=== PATIENT | female | born 1965 | race Caucasian/White ===

== ENCOUNTER 2017-04-18 09:35 | Emergency (ER) | payer BC ==
[2017-04-18 09:45] VITALS: BP 140/80
--- NOTE | 2017-04-18 11:21 | EDM.PDOC ---
ED HPI GENERAL MEDICAL PROBLEM - General Chief Complaint: Respiratory Problem Stated Complaint: SOB Time Seen by Provider: 04/18/17 09:56 Source of Information: Reports: Patient, RN Notes Reviewed - History of Present Illness INITIAL COMMENTS - FREE TEXT/NARRATIVE: 51-year-old female comes in with some intermittent shortness of breath and pressure sensation anterior chest the past 2 days. She has not been ill with cough sore throat fever or chills. It does not hurt to breathe. She does have history of GERD and at times there is some burning discomfort of the upper abdomen into the lower chest. She thinks this may be reflux but wants to make sure that there is nothing more serious going on. She does have history of hypertension. She has history of type 2 diabetes. No known history for coronary artery disease. 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 - Related Data Allergies Allergy/AdvReac Type Severity Reaction Status Date / Time cephalexin Allergy Other Verified 12/06/16 06:22 Sulfa (Sulfonamide Allergy Nausea Verified 12/06/16 06:22 Antibiotics) sulfamethoxazole Allergy Other Verified 12/06/16 06:22 [From Bactrim] trimethoprim [From Bactrim] Allergy Other Verified 12/06/16 06:22 pet dander Allergy Other Uncoded 12/06/16 06:22 Home Meds: Home Meds Acetaminophen [Tylenol] 650 mg PO Q6HR PRN 07/28/16 [History] Aspirin [Halfprin] 81 mg PO ASDIRECTED 07/28/16 [History] Cholestyramine/Sucrose [Cholestyramine] 1 dose PO DAILY PRN 07/28/16 [History] Esomeprazole Magnesium [Nexium] 20 mg PO DAILY 07/28/16 [History] Fexofenadine [Laurel] 180 mg PO DAILY 07/28/16 [History] Lisinopril 5 mg PO DAILY 07/28/16 [History] glipiZIDE [Glipizide Xl] 10 mg PO BID 07/28/16 [History] metFORMIN HCl [Metformin HCl] 1,000 mg PO BID 07/28/16 [History] metroNIDAZOLE [Metrocream] 1 applic TOP BID 07/28/16 [History] Past Medical History HEENT History: Reports: Impaired Vision Cardiovascular History: Reports: Hypertension Other Cardiovascular History: palpitations Respiratory History: Reports: Asthma, Sleep Apnea Gastrointestinal History: Reports: GERD, Inflammatory Bowel Disease Genitourinary History: Reports: UTI, Recurrent 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: , Other (See Below) Other OB/BYN History: polyp removal from uteris Musculoskeletal History: Reports: Back Pain, Chronic Endocrine/Metabolic History: Reports: Diabetes, Type II Dermatologic History: Reports: Other (See Below) Other Dermatologic History: rosasia - Past Surgical History Musculoskeletal Surgical History: Reports: Other (See Below) Social & Family History - Family History Family Medical History: Noncontributory - Tobacco Use Smoking Status *Q: Never Smoker Second Hand Smoke Exposure: No - Caffeine Use Caffeine Use: Reports: Soda - Recreational Drug Use Recreational Drug Use: Yes ED ROS GENERAL - Review of Systems Review Of Systems: See Below Constitutional: Denies: Fever, Chills, Diaphoresis HEENT: Denies: Throat Pain Respiratory: Reports: Shortness of Breath. Denies: Wheezing, Pleuritic Chest Pain, Cough, Sputum, Hemoptysis Cardiovascular: Reports: Chest Pain. Denies: Palpitations GI/Abdominal: Reports: Abdominal Pain (Intermittent upper mid abdominal discomfort). Denies: Nausea, Vomiting Musculoskeletal: Denies: Shoulder Pain, Arm Pain, Back Pain Skin: Reports: No Symptoms Neurological: Reports: No Symptoms ED EXAM, GENERAL - Physical Exam Exam: See Below General Appearance: Alert, Moderate Distress Eye Exam: Bilateral Eye: PERRL Throat/Mouth: Normal Inspection, Normal Oropharynx Head: No: Facial Swelling Neck: Supple, Full Range of Motion, Other (No JVD) Respiratory/Chest: No Respiratory Distress, Lungs Clear, Normal Breath Sounds Cardiovascular: Regular Rate, Rhythm GI/Abdominal: Soft, Tender (Very mild tenderness upper mid abdomen) Back Exam: No: CVA Tenderness (L), CVA Tenderness (R) Extremities: No: Leg Pain, Increased Warmth, Redness Neurological: Alert, Oriented, No Motor/Sensory Deficits EKG INTERPRETATION EKG Date: 04/18/17 Rhythm: NSR [place]: normal P-wave: present QRS: normal ST-T: normal Course - Vital Signs Last Recorded V/S: Last Vital Signs Temp 98 F 04/18/17 09:41 Pulse 94 04/18/17 09:41 Resp 21 H 04/18/17 09:41 BP 140/80 04/18/17 09:41 Pulse Ox 93 L 04/18/17 09:41 - Orders/Labs/Meds Orders: Active Orders 24 hr Category Date Time Status Chest 1V Frontal [CR] Stat Exams 04/18/17 10:11 Taken Labs: Laboratory Tests 04/18/17 Range/Units 10:02 Troponin I < 0.017 (0.00-0.056) ng/mL - Re-Assessments/Exams Free Text/Narrative Re-Assessment/Exam: 04/18/17 11:44 Chest x-ray and troponin are good, patient resting comfortably while here in the ED, sinus rhythm no ectopy discharge instructions as documented Departure - Departure Time of Disposition: 11:19 Disposition: Home, Self-Care 01 Condition: fair Clinical Impression: Atypical chest pain, GERD (gastroesophageal reflux disease) - Discharge Information Instructions: Nonspecific Chest Pain, Gastroesophageal Reflux Disease, Adult, [id number] Referrals: Asuncion Diana MD [Primary Care Provider] - Forms: ED Department Discharge Additional Instructions: Continue Nexium as prescribed, you may take Pepcid(famotidine), available OTC in addition 20 mg one to 2 times daily for extra antacid relief, take occasional tums or Maalox if needed, followup clinic as needed, return to ED as needed if symptoms worsening in any way - My Orders Last 24 Hours: My Active Orders 04/18/17 10:11 Chest 1V Frontal [CR] Stat - Assessment/Plan Last 24 Hours: My Active Orders 04/18/17 10:11 Chest 1V Frontal [CR] Stat
--- NOTE | 2017-04-19 09:06 | CR ---
Chest: Portable view of the chest was obtained. Comparison: No previous study. Heart size and mediastinum are within normal limits. Lungs are clear. Bony structures are grossly intact. Impression: 1. Nothing acute is identified on portable chest x-ray. Diagnostic code #1
== END 2017-04-18 11:40 | disposition home or self-care (01) ==
LOC: JD.ED 09:35
DX: R07.89 Other chest pain (principal); K21.9 Gastro-esophageal reflux disease without esophagitis; I10 Essential (primary) hypertension; E11.9 Type 2 diabetes mellitus without complications; Z79.899 Other long term (current) drug therapy; Z79.82 Long term (current) use of aspirin; Z88.1 Allergy status to other antibiotic agents; Z88.2 Allergy status to sulfonamides; Z91.048 Other nonmedicinal substance allergy status
CPT/HCPCS: 36415; 71010; 71010-26; 84484; 99283; 99285

== ENCOUNTER 2019-09-14 12:48 | Emergency (ER) | payer BC ==
[2019-09-14 13:01] VITALS: BP 159/87; PULSE 83
[2019-09-14] MEDS ORDERED: Sodium Chloride 0.9% 10 ML Syringe FLUSH PRN (13:07)
[2019-09-14] MEDS ORDERED: Sodium Chloride 0.9% 1,000 ML IV ONE (13:07)
--- NOTE | 2019-09-14 13:25 | EDM.PDOC ---
ED HPI GENERAL MEDICAL PROBLEM - General Chief Complaint: Gastrointestinal Problem Stated Complaint: CONSTIPATION Time Seen by Provider: 09/14/19 12:56 Source of Information: Reports: Patient, RN Notes Reviewed History Limitations: Reports: No Limitations - History of Present Illness INITIAL COMMENTS - FREE TEXT/NARRATIVE: Patient is a 54-year-old female who presents to the ED for evaluation of constipation. She notes that she has not had a regular bowel movement in over 7 days. She has been communicating with her primary care provider at [facility] via their one chart. She has been using MiraLAX twice a day since Wednesday, and did try Dulcolax on Wednesday, and this has not provided much relief of her constipation. She states she is also trying to increase her oral fluid intake as well. She notes that she had a little bit of liquid type stool in the morning, but has not had anything that she would consider a large amount of stool for the amount of time she has not had a BM. She has been staying away from dairy products as well. The patient notes that she normally has a history of diarrhea that she has to take colostrum for, this is a result of her gallbladder removal. She denies any fevers or chills, nausea or vomiting or diarrhea, any urinary complaints. She states that she just feels really full, and she states sometimes it feels as if it's hard to breathe due to her constipation. She does note a history of IBS, and heartburn issues. She denies any other abdominal surgeries other than the cholecystectomy. She states she's never had an issue with constipation before. - Related Data Allergies Allergy/AdvReac Type Severity Reaction Status Date / Time cephalexin Allergy Other Verified 06/18/19 18:17 dimethicone Allergy Rash Verified 06/18/19 18:20 levofloxacin [From Levaquin] Allergy Cannot Verified 06/18/19 18:20 Remember lorazepam [From Ativan] Allergy Rash Verified 06/18/19 18:20 methylprednisolone Allergy Hives Verified 06/18/19 18:20 nitrofurantoin Allergy Cannot Verified 06/18/19 18:20 Remember sertraline [From Zoloft] Allergy Cannot Verified 06/18/19 18:20 Remember Sulfa (Sulfonamide Allergy Nausea Verified 06/18/19 18:17 Antibiotics) sulfamethoxazole Allergy Other Verified 06/18/19 18:17 [From Bactrim] triamcinolone Allergy Hives Verified 06/18/19 18:20 trimethoprim [From Bactrim] Allergy Other Verified 06/18/19 18:17 pet dander Allergy Other Uncoded 06/03/17 10:34 Home Meds: Home Meds Acetaminophen [Tylenol] 650 mg PO Q6HR PRN 07/28/16 [History] Aspirin [Halfprin] 81 mg PO ASDIRECTED 07/28/16 [History] Cholestyramine/Sucrose [Cholestyramine] 1 dose PO DAILY PRN 07/28/16 [History] Esomeprazole Magnesium [Nexium] 20 mg PO DAILY 07/28/16 [History] Fexofenadine [Laurel] 180 mg PO DAILY 07/28/16 [History] Lisinopril 5 mg PO DAILY 07/28/16 [History] glipiZIDE [Glipizide Xl] 10 mg PO BID 07/28/16 [History] metFORMIN HCl [Metformin HCl] 1,000 mg PO BID 07/28/16 [History] metroNIDAZOLE [Metrocream] 1 applic TOP BID 07/28/16 [History] Doxycycline [Vibramycin] 100 mg PO BID #14 tab 09/14/19 [Rx] Past Medical History HEENT History: Reports: Impaired Vision Cardiovascular History: Reports: Hypertension Other Cardiovascular History: palpitations Respiratory History: Reports: Asthma, Sleep Apnea Gastrointestinal History: Reports: GERD, Inflammatory Bowel Disease Genitourinary History: Reports: UTI, Recurrent 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: , 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: polyp removal from uteris Musculoskeletal History: Reports: Back Pain, Chronic Endocrine/Metabolic History: Reports: Diabetes, Type II Dermatologic History: Reports: Other (See Below) Other Dermatologic History: rosasia - Past Surgical History Musculoskeletal Surgical History: Reports: Other (See Below) Social & Family History - Family History Family Medical History: Noncontributory - Tobacco Use Smoking Status *Q: Never Smoker - Caffeine Use Caffeine Use: Reports: Soda - Recreational Drug Use Recreational Drug Use: No ED ROS GENERAL - Review of Systems Review Of Systems: See Below Constitutional: Denies: Fever, Chills, Decreased Appetite HEENT: Reports: No Symptoms Respiratory: Denies: Shortness of Breath Cardiovascular: Denies: Chest Pain GI/Abdominal: Reports: Constipation (no BM x 7 days). Denies: Abdominal Pain, Diarrhea, Nausea, Vomiting : Denies: Dysuria, Frequency, Urgency Musculoskeletal: Reports: No Symptoms Skin: Reports: No Symptoms Neurological: Reports: No Symptoms Psychiatric: Reports: No Symptoms Hematologic/Lymphatic: Reports: No Symptoms Immunologic: Reports: No Symptoms ED EXAM, GI/ABD - Physical Exam Exam: See Below Exam Limited By: No Limitations General Appearance: Alert, WD/WN, No Apparent Distress, Obese (morbidly) Eyes: Bilateral: Normal Appearance, EOMI Respiratory/Chest: No Respiratory Distress, Lungs Clear, Normal Breath Sounds, No Accessory Muscle Use, Chest Non-Tender Cardiovascular: Normal Peripheral Pulses, Regular Rate, Rhythm, No Murmur GI/Abdominal Exam: Soft, Non-Tender, No Distention, No Mass, Abnormal Bowel Sounds (hypoactive bowel tones) Extremities: Normal Inspection, Normal Capillary Refill Neurological: Alert, Oriented, Normal Cognition, No Motor/Sensory Deficits Psychiatric: Normal Affect, Normal Mood Skin Exam: Warm, Dry, Intact, Normal Color, No Rash Course - Vital Signs Last Recorded V/S: Last Vital Signs Temp 98.0 F 09/14/19 12:55 Pulse 83 09/14/19 12:55 Resp 20 09/14/19 12:55 BP 159/87 H 09/14/19 12:55 Pulse Ox 98 09/14/19 12:55 - Orders/Labs/Meds Orders: Active Orders 24 hr Category Date Time Status Peripheral IV Care [RC] . DIRECTED Care 09/14/19 13:07 Active CULTURE URINE [RM] Routine Lab 09/14/19 16:23 Ordered Sodium Chloride 0.9% [Saline Flush] Med 09/14/19 13:07 Active 10 ml FLUSH ASDIRECTED PRN Peripheral IV Insertion Adult [OM.PC] Stat Oth 09/14/19 13:07 Ordered Medication Orders Sodium Chloride (Saline Flush) 10 ml FLUSH ASDIRECTED PRN PRN Reason: Keep Vein Open Labs: Laboratory Tests 09/14/19 09/14/19 09/14/19 Range/Units 13:10 13:10 13:34 WBC 7.78 (3.98-10.04) K/mm3 RBC 4.65 (3.98-5.22) M/mm3 Hgb 13.2 (11.2-15.7) gm/dl Hct 39.8 (34.1-44.9) % MCV 85.6 (79.4-94.8) fl MCH 28.4 (25.6-32.2) pg MCHC 33.2 (32.2-35.5) g/dl RDW Std Deviation 37.9 (36.4-46.3) fL Plt Count 290 (182-369) K/mm3 MPV 9.8 (9.4-12.3) fl Neutrophils % (Manual) 66 H (40-60) % Band Neutrophils % 0 (0-10) % Lymphocytes % (Manual) 29 (20-40) % Atypical Lymphs % 0 % Monocytes % (Manual) 3 (2-10) % Eosinophils % (Manual) 2 (0.7-5.8) % Basophils % (Manual) 0 L (0.1-1.2) Platelet Estimate Adequate RBC Morph Comment Normal Sodium 138 (136-145) mEq/L Potassium 4.2 (3.5-5.1) mEq/L Chloride 103 (98-107) mEq/L Carbon Dioxide 25 (21-32) mEq/L Anion Gap 14.2 (5-15) BUN 11 (7-18) mg/dL Creatinine 0.7 (0.55-1.02) mg/dL Est Cr Clr Drug Dosing 81.71 mL/min Estimated GFR (MDRD) > 60 (>60) mL/min BUN/Creatinine Ratio 15.7 (14-18) Glucose 143 H (74-106) mg/dL Calcium 9.4 (8.5-10.1) mg/dL Total Bilirubin 0.5 (0.2-1.0) mg/dL AST 21 (15-37) U/L ALT 32 (14-59) U/L Alkaline Phosphatase 75 (46-116) U/L Total Protein 7.7 (6.4-8.2) g/dl Albumin 4.0 (3.4-5.0) g/dl Globulin 3.7 gm/dL Albumin/Globulin Ratio 1.1 (1-2) Urine Color Light yellow (Yellow) Urine Appearance Clear (Clear) Urine pH 6.5 (5.0-8.0) Ur Specific [place] 1.010 (1.005-1.030) Urine Protein Negative (Negative) Urine Glucose (UA) Negative (Negative) Urine Ketones Negative (Negative) Urine Occult Blood Negative (Negative) Urine Nitrite Negative (Negative) Urine Bilirubin Negative (Negative) Urine Urobilinogen 0.2 (0.2-1.0) Ur Leukocyte Esterase 2+ H (Negative) Urine RBC 0-5 (0-5) /hpf Urine WBC 10-20 H (0-5) /hpf Ur Squamous Epith Cells 0-5 (0-5) /hpf Urine Bacteria Few (FEW) /hpf Urine Mucus Few (FEW) /hpf Meds: Medications Generic Name Dose Route Start Last Admin Trade Name Freq PRN Reason Stop Dose Admin Sodium Chloride 10 ml 09/14/19 13:07 Saline Flush FLUSH ASDIRECTED PRN Keep Vein Open Discontinued Medications Generic Name Dose Route Start Last Admin Trade Name Freq PRN Reason Stop Dose Admin Diatrizoate Meglum/Diatrizoate Sod 90 ml 09/14/19 14:26 09/14/19 15:27 Gastrografin 37% PO 09/14/19 14:27 90 ml ONETIME ONE Administration Sodium Chloride 1,000 mls @ 500 mls/hr 09/14/19 13:07 09/14/19 14:54 Normal Saline IV 09/14/19 15:06 500 mls/hr ONETIME ONE Administration Iopamidol 100 ml 09/14/19 14:26 09/14/19 15:27 Isovue-300 (61%) IVPUSH 09/14/19 14:27 100 ml ONETIME ONE Administration Sodium Chloride 10 ml 09/14/19 14:26 09/14/19 14:54 Saline Flush FLUSH 09/14/19 14:27 10 ml ONETIME ONE Administration - Re-Assessments/Exams Free Text/Narrative Re-Assessment/Exam: 09/14/19 13:26 Patient presents to the ED for evaluation of constipation. I did order a flat and upright abdomen x-ray to be obtained, urinalysis, and an IV with some IV fluids for initial management. We'll see what the abdomen x-ray has in store regarding further management. 09/14/19 14:17 X-ray is done, and demonstrates air-fluid levels within slightly prominent small bowel gas. Radiologist states is difficult to exclude slight gastroenteritis the findings may also be within normal limits. Dr. French felt this might be more of an ileus type pattern and suggests doing an Abdomen/ pelvis CT and labs to r/o further etiology. I did order CBC, CMP for further evaluation. Will order abd/pelvis CT. 09/14/19 16:17 Laboratory evaluation was done, never straight no acute bacterial infection, but urinalysis showed 2+ leukocyte esterase and 10-20 white blood cells in her urine. Which is suggestive for a UTI in nature. Abdomen and pelvis CT is done , and demonstrate no acute abnormalities. Small bowel appears normal on the exam, she has minimal sigmoid diverticulosis but not diverticulitis. She has fatty infiltration throughout the liver, prior cholecystectomy, but no other acute findings were appreciated. Departure - Departure Time of Disposition: 16:18 Disposition: Home, Self-Care 01 Condition: Fair Clinical Impression: UTI, Urinary tract infectious disease, Diverticulosis of colon - Discharge Information *PRESCRIPTION DRUG MONITORING PROGRAM REVIEWED*: No *COPY OF PRESCRIPTION DRUG MONITORING REPORT IN PATIENT ESTELA: No Prescriptions: Doxycycline [Vibramycin] 100 mg PO BID #14 tab Instructions: Urinary Tract Infection, Adult, [id number], Diverticulosis Referrals: Asuncion Diana MD [Primary Care Provider] - Forms: ED Department Discharge Additional Instructions: You were evaluated in the ER today regarding your possible constipation. Your laboratory evaluation was within normal limits, your abdomen x-ray and CT did not demonstrate any sort of constipation or blockage. Your urinalysis was positive for urinary tract infection, you will be started on an antibiotic, doxycycline, 100 mg twice a day 7 days. Please return to the ER at any time if your symptoms change or worsen. - My Orders Last 24 Hours: My Active Orders 09/14/19 13:07 Peripheral IV Care [RC] . DIRECTED Sodium Chloride 0.9% [Saline Flush] 10 ml FLUSH ASDIRECTED PRN Peripheral IV Insertion Adult [OM.PC] Stat 09/14/19 16:23 CULTURE URINE [RM] Routine - Assessment/Plan Last 24 Hours: My Active Orders 09/14/19 13:07 Peripheral IV Care [RC] . DIRECTED Sodium Chloride 0.9% [Saline Flush] 10 ml FLUSH ASDIRECTED PRN Peripheral IV Insertion Adult [OM.PC] Stat 09/14/19 16:23 CULTURE URINE [RM] Routine
--- NOTE | 2019-09-14 13:58 | CR ---
Abdomen: Supine and upright views the abdomen were obtained. Comparison: Prior abdominal x-ray of 12/05/16. Several loops of gas-filled small bowel are seen that show air-fluid levels. No free air is seen. Mild degenerative change and scoliosis are noted within the spine. Calcifications seen within the pelvis which are likely due to phleboliths. Prior cholecystectomy is seen. Impression: 1. Several air-fluid levels within slightly prominent small bowel gas. Difficult to exclude slight gastroenteritis but findings may also be within normal limits. 2. Other findings believed to be incidental. Diagnostic code #3
[2019-09-14] MEDS ORDERED: Diatrizoate Meglumine/Diatrizoate Sodium 37% 120 ML Bottle PO ONE (14:26)
[2019-09-14] MEDS ORDERED: Sodium Chloride 0.9% 10 ML Syringe FLUSH ONE (14:26)
[2019-09-14] MEDS ORDERED: Iopamidol 612 MG/ML 100 ML Bottle IVPUSH ONE (14:26)
--- NOTE | 2019-09-14 15:56 | CT ---
CT abdomen and pelvis Technique: Multiple axial sections were obtained from above the dome of the diaphragm inferiorly through the pubic symphysis. Intravenous and oral contrast was utilized. Delayed images were obtained through the bladder. Comparison: Prior abdominal x-ray performed earlier on the same day (1:23 PM) and prior CT abdomen and pelvis study of 12/05/16. Findings: Visualized lung bases show nothing acute. Liver shows fatty infiltration. No focal abnormality is seen within the liver. Spleen appears within normal limits. Adrenal glands show no nodule. Pancreas appears within normal limits. Kidneys show symmetric contrast enhancement with no hydronephrosis or mass. Surgical clips are seen from prior cholecystectomy. Aorta shows no aneurysm. No retroperitoneal adenopathy or mesenteric abnormalities are seen. No pelvic mass or adenopathy is noted. No free fluid or inflammatory change is seen. Minimal sigmoid diverticulosis is seen without diverticulitis. Small bowel appears normal on this exam. Delayed images shows contrast within the distal ureters and within the bladder. Bone window settings were reviewed which shows scattered degenerative change within the spine. Impression: 1. Fatty infiltration within the liver. 2. Prior cholecystectomy. 3. Other findings which are felt to be incidental. Nothing acute is appreciated on CT study of the abdomen and pelvis. Diagnostic code #2
== END 2019-09-14 16:34 | disposition home or self-care (01) ==
LOC: JD.ED 12:48
DX: N39.0 Urinary tract infection, site not specified (principal); K57.30 Diverticulosis of large intestine without perforation or abscess without bleeding; I10 Essential (primary) hypertension; E11.9 Type 2 diabetes mellitus without complications; Z79.84 Long term (current) use of oral hypoglycemic drugs; Z79.82 Long term (current) use of aspirin; Z79.899 Other long term (current) drug therapy; Z88.1 Allergy status to other antibiotic agents; Z88.2 Allergy status to sulfonamides; Z88.8 Allergy status to other drugs, medicaments and biological substances; Z91.048 Other nonmedicinal substance allergy status
CPT/HCPCS: 36415; 74019; 74177; 80053; 81001; 85007; 85027; 87086; 96360; 96361; 99284; J7040; Q9963; Q9967

== ENCOUNTER 2024-02-11 07:54 | Emergency (ER) | payer BC ==
[2024-02-11] MEDS: Ondansetron 4 MG/2 ML SDV IVPUSH ONE (08:58)
[2024-02-11] MEDS: Sodium Chloride 0.9% 1,000 ML IV ONE (08:58)
[2024-02-11 09:04] LABS: BASOPHILS PERCENT AUTO 0.4 % (0.0-1.0); EOSINOPHILS ABSOLUTE AUTO 0.1 K/mm3 (0.0-0.4); EOSINOPHILS PERCENT AUTO 1.8 % (0.0-6.0); HEMATOCRIT 40.4 % (37.0-47.0); HEMOGLOBIN 13.5 gm/dl (12.0-16.0); IMMATURE GRAN ABSOLUTE AUTO 0.03 K/mm3 (0.00-0.05); IMMATURE GRAN PERCENT AUTO 0.4 % (0.0-0.4); LYMPHOCYTES ABSOLUTE AUTO 1.5 K/mm3 (1.0-4.8); MEAN CORPUSCULAR HEMOGLOBIN 29.3 pg (28.0-32.0); MEAN CORPUSCULAR HGB CONC 33.4 g/dl (32.0-36.0); MEAN CORPUSCULAR VOLUME 87.6 fl (83.0-99.0); MEAN PLATELET VOLUME 9.7 fl (9.4-12.3); MONOCYTES ABSOLUTE AUTO 0.7 K/mm3 (0.0-0.8); MONOCYTES PERCENT AUTO 10.2 % (0.0-8.0); NEUTROPHILS ABSOLUTE AUTO 4.8 K/mm3 (1.8-7.7); NEUTROPHILS PERCENT AUTO 66.2 % (41.0-71.0); PLATELET COUNT,PLT 274 K/mm3 (150-400); RED BLOOD CELL COUNT 4.61 M/mm3 (4.10-5.30); WHITE BLOOD CELL COUNT,WBC 7.28 K/mm3 (3.9-11.3)
[2024-02-11 09:06] LABS: APPEARANCE,URINE CLEAR (Clear); BILIRUBIN,URINE NEGATIVE (Negative); COLOR,URINE LIGHT YELLOW (Yellow); GLUCOSE,URINE NEGATIVE (Negative); KETONES,URINE NEGATIVE (Negative); LEUKOCYTE ESTERASE,URINE TRACE (Negative); NITRITE,URINE NEGATIVE (Negative); OCCULT BLOOD,URINE NEGATIVE (Negative); PROTEIN,URINE NEGATIVE (Negative); UROBILINOGEN,URINE 0.2 (0.2-1.0)
[2024-02-11 09:20] LABS: A/G RATIO 1.1 (1-2); ALBUMIN 3.8 g/dl (3.4-5.0); ANION GAP 13.4 (5-15); BILIRUBIN TOTAL 0.3 mg/dL (0.2-1.0); BUN/CREATININE RATIO 17.5 (14-18); CALCIUM 9.2 mg/dL (8.5-10.1); CREATININE 0.8 mg/dL (0.55-1.02); EST CRCL DRUG DOSING (CG) 68.13 mL/min; POTASSIUM,K 4.4 mEq/L (3.5-5.1); PROTEIN TOTAL,TP 7.3 g/dl (6.4-8.2)
[2024-02-11] MEDS: Ketorolac 15 MG/ML SDV IVPUSH ONE (10:00)
[2024-02-11 10:37] LABS: BACTERIA,URINE RARE /hpf (FEW); EPITHELIAL CELLS,URINE 0-5 /hpf (0-5); MUCUS,URINE NOT SEEN /hpf (FEW); RBC,URINE 0-5 /hpf (0-5); WBC,URINE 0-5 /hpf (0-5)
[2024-02-11] MEDS: Iopamidol 612 MG/ML 100 ML Bottle IVPUSH ONE (10:55)
[2024-02-11] MEDS: Sodium Chloride 0.9% 10 ML Syringe FLUSH PRN (10:55)
[2024-02-11 13:30] VITALS: BP 144/90; PULSE 71
== END 2024-02-11 13:18 | disposition home or self-care (01) ==
LOC: JD.ED 07:54
DX: S39.011A Strain of muscle, fascia and tendon of abdomen, initial encounter (principal); I10 Essential (primary) hypertension; K21.9 Gastro-esophageal reflux disease without esophagitis; E11.9 Type 2 diabetes mellitus without complications; Z88.1 Allergy status to other antibiotic agents; Z88.8 Allergy status to other drugs, medicaments and biological substances; Z88.2 Allergy status to sulfonamides; Z79.82 Long term (current) use of aspirin; Z79.84 Long term (current) use of oral hypoglycemic drugs; Z79.899 Other long term (current) drug therapy; X58.XXXA Exposure to other specified factors, initial encounter
CPT/HCPCS: 36415; 74177; 74177-26; 80053; 81001; 85025; 87086; 96361; 96374; 99284; 99284-25; J1885; J3490; J7030; Q9967